=== PATIENT | female | born 1985 | race Hispanic/Latino ===

== ENCOUNTER 2020-09-01 09:02 | Outpatient (CLI) | payer OTHER ==
--- NOTE | 2020-09-01 11:17 | ULT ---
OB ULTRASOUND: HISTORY: anatomy FINDINGS: Exam is limited due to patient's body habitus. A single live intrauterine gestation is seen with measurements corresponding to an estimated gestatio nal age of 21 weeks 0 daysand LETICIA at 01/12/2021. The estimated weight measures 365 g or 13 ounces. biometry: BPD: 5.11 cm, 21 weeks 4 days HC: 18.47 cm, 20 weeks 6 days AC: 14.78 cm, 20 weeks 1 day FL: 3.52 cm, 21 weeks 1 day heart rate: 143bpm Placenta: Posterior fundal Placenta previa: No LUCAS: 13.3cm Cervical length: 4.7cm A three-vessel cord, cord insertion, kidneys, urinary bladder, stomach, 4 chambered heart, late ral ventricles, cerebellum, spine, lips/nose, upper and lower extremities are visualized. No definite anomalies are seen. Maternal adnexa is not visualized. IMPRESSION: Single live intrauterine gestation of 21 weeks 0 daysestimated gestational age and LETICIA at 01/12/2020
== END 2020-09-01 09:03 | disposition home or self-care (01) ==
LOC: BICULT 09:02
PROVIDERS: ATTEND Family Medicine
DX: O09.92 Supervision of high risk pregnancy, unspecified, second trimester (principal); Z3A.21 21 weeks gestation of pregnancy
CPT/HCPCS: 76805

== ENCOUNTER 2020-12-24 06:43 | Emergency (ER) | payer OTHER ==
[2020-12-24 12:57] LABS: SARS-CoV-2 PCR by NAA Not Detected (NotDetected)
== END 2020-12-24 07:44 | disposition short-term general hospital (02) ==
LOC: ERS 06:43
DX: O62.0 Primary inadequate contractions (principal); Z3A.38 38 weeks gestation of pregnancy
CPT/HCPCS: 87635; U0003; U0005

== ENCOUNTER 2022-11-23 08:55 | Outpatient (CLI) | payer OTHER | END 2022-11-23 08:56 | disposition home or self-care (01) | LOC: BICULT 08:55 | PROVIDERS: ATTEND Family Medicine | DX: O09.522 Supervision of elderly multigravida, second trimester (principal) | CPT/HCPCS: 76805 ==